=== PATIENT | female | born 1990 | race Caucasian/White ===

== ENCOUNTER → 2021-02-09 | Outpatient (CLI) | payer BC ==
[2021-02-09 20:52] LABS: CA 125 47.4 U/ML (<30.2); CA19-9 TUMOR MARKER,CARBOHYDRA 4.4 U/ML (<35.0)
== END ==
LOC: M WUC 15:21
PROVIDERS: ATTEND Obstetrics & Gynecology
DX: D39.11 Neoplasm of uncertain behavior of right ovary (principal)

== ENCOUNTER → 2021-02-12 | Outpatient (CLI) | payer BC | LOC: M LABSMTC 12:20 | PROVIDERS: ATTEND Anesthesiology | DX: Z01.812 Encounter for preprocedural laboratory examination (principal); Z20.822 Contact with and (suspected) exposure to COVID-19 ==

== ENCOUNTER 2021-02-15 06:56 | Day surgery (SDC) | payer BC ==
[~2021-02-15] VITALS: Ht 157.5 cm; Wt 128.7 kg
[~2021-02-15 06:56] MED LIST: LIDOCAINE 1% MDV 20ML VIAL SQ PRN; LR 1,000 ML IV ONE; ceFAZolin SOD 2 GM in IV 1 EA IV ONE
[2021-02-15 07:33] LABS: HEMATOCRIT 41.2 % (36.0-47.0); HEMOGLOBIN 13.1 g/dl (12.0-15.5); MEAN CORPUSCULAR HEMOGLOBIN 27.3 pg (27.0-33.0); MEAN CORPUSCULAR HGB CONC 31.8 g/dl (32.0-36.5); MEAN CORPUSCULAR VOLUME 85.8 fl (80.0-96.0); PLATELET COUNT, AUTOMATED 322 10^3/uL (150-450)
[2021-02-15] MEDS ORDERED: propofoL 200 MG/20 ML VIAL As Ordered ONE (08:57)
[2021-02-15] MEDS ORDERED: LIDOCAINE 2% 100MG/5ML SDV (FOR ANES.) As Ordered ONE (08:57)
[2021-02-15] MEDS ORDERED: ROCURONIUM BROMIDE 50 MG/5 ML VIAL As Ordered ONE ×2 (08:57→11:33)
[2021-02-15] MEDS ORDERED: ACETAMINOPHEN 1000MG 100ML IV BTL (OFIRMEV) (J0131 PER 10MG) As Ordered ONE (08:58)
[2021-02-15] MEDS ORDERED: dexameTHASONE 4 MG/ML 1ML VIAL (J1100 PER 1MG) As Ordered ONE ×2 (08:58→11:08)
[2021-02-15] MEDS ORDERED: fentaNYL 250 MCG/5 ML INJECTION (J3010) As Ordered ONE (09:06)
[2021-02-15] MEDS ORDERED: SUGAMMADEX SODIUM 500 MG/5 ML VIAL (BRIDION) As Ordered ONE (09:09)
[2021-02-15] MEDS ORDERED: MIDAZOLAM INJ 2MG/2ML VIAL (J2250 PER 1MG) As Ordered ONE (09:10)
[2021-02-15] MEDS ORDERED: ALBUTEROL 6.7GM INHALER **FOR ANES. CART/OMNICELL ONLY As Ordered ONE (10:45)
[2021-02-15] MEDS ORDERED: ONDANSETRON 4MG/2ML VIAL As Ordered ONE (11:09)
[2021-02-15] MEDS ORDERED: LABETALOL 100MG/20ML VIAL As Ordered ONE (11:18)
[2021-02-15] MEDS ORDERED: KETOROLAC 60MG 2ML VIAL As Ordered ONE (11:45)
[2021-02-15] MEDS ORDERED: fentaNYL 100 MCG/2 ML INJECTION (J3010) As Ordered ONE (12:54)
[2021-02-15] MEDS ORDERED: MORPHINE 1MG/ML IN 0.9% NACL 100ML IV BAG As Ordered ONE (13:08)
[2021-02-15] MEDS ORDERED: ONDANSETRON 4MG/2ML VIAL IV PRN (13:20)
[2021-02-15] MEDS ORDERED: LR 1,000 ML IV SCH (13:20)
[2021-02-15] MEDS ORDERED: PERCOCET 5MG/325MG TAB PO PRN (13:20)
[2021-02-15] MEDS ORDERED: NALBUPHINE HCL 10 MG/ML AMP (J2300) IV PRN (13:20)
[2021-02-15] MEDS ORDERED: fentaNYL 100 MCG/2 ML INJECTION (J3010) IV PRN (13:20)
[2021-02-15] MEDS ORDERED: EPIDURAL/PCA KEYS XX PRN (13:20)
[2021-02-15] MEDS ORDERED: METOCLOPRAMIDE INJ 10MG/2ML VIAL (J2765 PER 1) IV PRN (13:20)
[2021-02-15] MEDS ORDERED: diphenhydrAMINE 50MG/ML VIAL (J1200) IV PRN (13:20)
[2021-02-15] MEDS ORDERED: MORPHINE 1MG/ML IN 0.9% NACL 100ML IV BAG IV PRN (13:20)
[2021-02-15] MEDS ORDERED: NALOXONE INJ 0.4MG/1ML VIAL (J2310 PER 1MG) IV PRN (13:20)
[2021-02-15] MEDS: LR 1,000 ML IV SCH ×2 (13:25→21:25)
[2021-02-15] MEDS ORDERED: IBUPROFEN 600MG TAB PO PRN (13:25)
--- NOTE | 2021-02-15 15:34 | RO ---
OPERATIVE NOTE DATE OF OPERATION: 02/15/2021 PREOPERATIVE DIAGNOSIS/INDICATION FOR SURGERY: Large right ovarian mass. POSTOPERATIVE DIAGNOSIS: Thus far frozen is cystadenoma. PROCEDURE: Laparotomy, washings, right salpingo-oophorectomy, left ovarian biopsy, omental biopsy, pelvic washings, and frozen section. SURGEON: Trinity Seo M.D. CONTACT LENS CUTTER: None. ANESTHESIA: General endotracheal. BRIEF DESCRIPTION OF PROCEDURE AND FINDINGS: Kaela was brought to the operating room where sufficient general endotracheal anesthesia was induced. She was prepped and draped in position in the usual sterile fashion supine with a Hassan in place, but not in lithotomy as that was not useful for this case. A vertical midline incision was made with the majority of it above the umbilicus where the lesion was in this patient. We did come around the umbilicus on the patient's right side because we needed an incision large enough for the lesion. We then extended out dissection through the subcutaneous tissues using the Bovee as needed and the scalpel as well. We then very carefully used the scalpel to incise the fascia superiorly and then when we had a large enough opening, grasped the edges with the elena and used the scissors and with my hand to displace the peritoneum behind it, so that we could incise the fascia in the midline, then come around the umbilicus, and then down below without risking popping this lesion. We then did see that there was some peritoneal fluid, so we went ahead and elevated an area superiorly above the umbilicus over the peritoneum, and then placed a tool that catches the fluid as we used the suction so that we could capture a sample. We had immediately upon entering the abdomen sucked out the small amount of peritoneal fluid and sent that as part of the permanent path. We then very carefully extended the peritoneal incision. There was not actually a particularly large amount of fluid, just there was some there, and we went ahead and collected it. We then having carefully extended the wound, carefully ran my hand around the lesion trying to get a sense of how much we needed. We did have to extend the fascial wound larger than the skin in order to get it large enough to get the lesion out. Then very carefully levering the lesion up and sliding the wound under, then carefully placing outside pressure from the patient's left lateral to bring the lesion to the right. We just carefully shoehorned the ovary out of the wound, and we did take some pictures then. Having the ovary out of the wound, we were able to then bag the ovary. I tried elevating the ovary and actually the mesentery where it turns out to the ovarian blood supply and the tube had actually split into two sections, so I could very clearly see where one mesentery was, but I could not tell where the other adhesion I though was, I think that was just a separation in the broad ligament there, but that was present before we stated. Since we really could not delineate the vascular supply well with this lesion full, we went ahead and put in a bag that is typically used for bowel resection, bagged it, pat cinched down with towels all around it. Then on the far side of the lesion inside the bag, we went ahead and made a small incision and sucked out approximately 3200 mL of fluid, which decompressed the lesion nicely. At that point, we could elevate it to see and get control of the vascular supply. So we carefully clamped and transected across the pedicle using Ashish clamps and across this extension to that broad ligament, and then went ahead with the removed ovary and tube and sent those for frozen. We of course over-sewed those pedicles with 0-Vicryl. We had good hemostasis there. We had a very normal uterus. There was no studding and there were no densities in the omentum. There was a clear yellow corpus luteum on the left ovary and then a tiny few millimeter pedunculated lesion that looked entirely benign to me, but with the size of the other lesion we decided to send that along with the frozen as well. The frozen came back that the biopsy benign and thus far what they have found is cystadenoma. It is suspicious that there is a borderline, but there is certainly no evidence thus far of invasion. We did while waiting for the results on the frozen do an omental biopsy and pelvic washings since we already had the upper abdomen sampled and send those for permanent, but currently diagnosis is cystadenoma. There also appeared on that ovary to be some endometrial implants, which I think are of insignificant impact at this point. I did not see other than those lesions on the actual mass, I did not see any other endometriosis in the pelvis, and again the left ovary is normal and left fallopian tube with not even a cyst of Morgagni there. Having confirmed, at least as far as we can tell thus far, a benign lesion, but again with a distinct possibility of borderline, we went ahead with the plan that we had made with the patient, which was to not do lymph nodes if that turned out to be the path and at 31, she is not eager to be menopausal unless that is necessary, and has survival impact. So at this point with no evidence of that and with a negative biopsy off that ovary, we went ahead and left it. We did close the omentum with 0-Vicryl and then we used one PDS on a loop in two segments to close the fascia. Then the deep layers of the abdomen were closed with the #1 chromic and the TurboNeedle in several segments to reapproximate the subcuticular space and then divya were used in the skin. Again, we had good approximation and hemostasis at each layer. A dry sterile dressing was then applied. ESTIMATED BLOOD LOSS: Approximately 50 mL. FLUID REPLACEMENT: Crystalloid. COMPLICATIONS: None. CONDITION AND DISPOSITION: Kaela tolerated the procedure well and was recovering in the recovery room in good condition.
[2021-02-15 16:20] VITALS: BP 115/65
[2021-02-15 17:20] VITALS: BP 137/78
[2021-02-15 18:20] VITALS: BP 144/88
[2021-02-15 20:31] VITALS: BP 124/67
[2021-02-16 02:00] VITALS: BP 126/68
[2021-02-16] MEDS: LR 1,000 ML IV SCH (05:25)
[2021-02-16] MEDS ORDERED: NORCO, ANEXSIA 5/325MG TABLET (HYDROcodone/ACETAMINOPHEN) PO PRN (06:00)
[2021-02-16 06:49] VITALS: BP 127/70
[2021-02-16 07:21] LABS: HEMATOCRIT 36.4 % (36.0-47.0); HEMOGLOBIN 11.4 g/dl (12.0-15.5); MEAN CORPUSCULAR HEMOGLOBIN 27.6 pg (27.0-33.0); MEAN CORPUSCULAR HGB CONC 31.3 g/dl (32.0-36.5); MEAN CORPUSCULAR VOLUME 88.1 fl (80.0-96.0); PLATELET COUNT, AUTOMATED 255 10^3/uL (150-450); RED BLOOD COUNT 4.13 10^6/uL (4.00-5.40); WHITE BLOOD COUNT 10.8 10^3/uL (4.0-10.0)
[2021-02-16 10:00] VITALS: BP 119/67
== END 2021-02-16 11:55 | disposition home or self-care (01) ==
LOC: M SDC 06:56 → M MS5PR 14:40 → M SDC 02-16 11:55
PROVIDERS: ATTEND Obstetrics & Gynecology
DX: R19.09 Other intra-abdominal and pelvic swelling, mass and lump (principal); E66.9 Obesity, unspecified; F12.10 Cannabis abuse, uncomplicated
CPT/HCPCS: 36415; 58720; 81025; 85027; 86850; 86900; 86901; 88108; 88305; 88307; 88313; 96360; 96361; J0131; J0690; J1100; J1885; J2250; J2405; J3010